=== PATIENT | male | born 1985 | race Caucasian/White ===

== ENCOUNTER 2019-10-09 18:08 | Emergency (ER) | payer BC ==
[~2019-10-09] VITALS: Ht 180.3 cm; Wt 79.4 kg
--- NOTE | 2019-10-09 18:10 | NUR ---
bibzenaidargini, lac on the forehead s/p slipped and fall while playing basketball and hit head on the metal fence, -nelsy mitchell a year ago. Patient a/ox4, breathing even and unlabored, has dry blood on face from laceration.
--- NOTE | 2019-10-09 19:00 | NUR ---
TAKEN TO CT.
--- NOTE | 2019-10-09 21:01 | NUR ---
pt was provided w/ a clean and dry dressing on the R head laceration. Stiched remained intact. pt clear for D/C home. Patient discharged to home in stable condition. Rx and Written and verbal after care instructions given. Patient verbalizes understanding of instruction.
[2019-10-09 21:59] VITALS: BP 119/68
== END 2019-10-09 21:01 | disposition home or self-care (01) ==
LOC: ER 18:19
DX: S01.81XA Laceration without foreign body of other part of head, initial encounter (principal); S01.111A Laceration without foreign body of right eyelid and periocular area, initial encounter; R51 Headache; R00.1 Bradycardia, unspecified; Z88.8 Allergy status to other drugs, medicaments and biological substances; W01.198A Fall on same level from slipping, tripping and stumbling with subsequent striking against other object, initial encounter; Y93.67 Activity, basketball; Y92.89 Other specified places as the place of occurrence of the external cause; Y99.8 Other external cause status
CPT/HCPCS: 12014; 70450; 99284; A6403